=== PATIENT | male | born 1950 | race Caucasian/White ===

== ENCOUNTER 2017-01-04 09:00 | Inpatient (IN) | payer MEDICARE ==
[2017-01-04] MEDS ORDERED: Bumetanide IV* 0.25 MG/ML 4 ML VIAL IV ONE (09:34)
[2017-01-04] MEDS ORDERED: Diltiazem IV* 5 MG/ML 5 ML VIAL (for loading dose/IV Push) (25 MG) IV SLOW PU ONE (09:38)
[2017-01-04] MEDS ORDERED: Diltiazem IV VIAL* 125 MG in D5W 100 ML BAG* 100 ML IV ONE (09:39)
[2017-01-04 09:48] LABS: Hematocrit 43 % (42-52); Hemoglobin 14.2 g/dl (14.0-18.0); Mean Corpuscular HGB Conc 33 g/dl (31-36); Mean Corpuscular Hemoglobin 32 pg (27-31); Mean Corpuscular Volume 95 fL (80-94); Mean Platelet Volume 8 um3 (7.4-10.4); Red Blood Count 4.48 10^6/ul (4.0-5.4); Red Cell Distribution Width 14 % (10.5-15); White Blood Count 9.3 10^3/ul (3.5-10.8)
[2017-01-04] MEDS ORDERED: Diltiazem DRIP* 100 MG/100 ML ADDV.BAG IVPB ONE (10:00)
[2017-01-04 10:05] LABS: Albumin 3.7 g/dL (3.2-5.2); BUN/Creatinine Ratio 19.7 (8-20); C Reactive Protein 2.46 mg/L (< 5.00); Calcium 8.8 mg/dL (8.6-10.3); EGFR African American 154.4 (>60); Globulin 2.6 g/dL (2-4); Potassium 3.7 mmol/L (3.5-5.0); Total Bilirubin 0.7 mg/dL (0.2-1.0); Total Protein 6.3 g/dL (6.4-8.9)
[2017-01-04 10:22] LABS: Urine Bacteria 1+ (Absent); Urine Bilirubin Negative (Negative); Urine Glucose Negative (Negative); Urine Nitrite Negative (Negative)
--- NOTE | 2017-01-04 10:23 | RAD ---
HISTORY: Shortness of breath, cough COMPARISONS: October 24, 2016 VIEWS:1: Single frontal portable view of the chest at 10:05 AM FINDINGS: LINES AND TUBES: None. CARDIOMEDIASTINAL SILHOUETTE: The cardiomediastinal silhouette is normal for portable technique. PLEURA: The costophrenic angles are sharp. No pleural abnormalities are noted. LUNG PARENCHYMA: The lung volumes are low. The lungs are clear accounting for the phase of respiration. ABDOMEN: The upper abdomen is clear. There is no subphrenic gas. BONES AND SOFT TISSUES: No bone or soft tissue abnormalities are noted. IMPRESSION: LOW LUNG VOLUMES. NO ACTIVE CARDIOPULMONARY DISEASE.
[2017-01-04] MEDS ORDERED: Metoprolol Tartrate TAB* 50 mg PO ONE (11:54)
[2017-01-04] MEDS ORDERED: Diltiazem TAB* 30 MG PO SCH (12:00)
[2017-01-04] MEDS ORDERED: Diazepam TAB(*) 5 MG PO ONE (15:35)
[2017-01-04] MEDS ORDERED: diPHENhydraMINE PO* 25 MG PO ONE (15:35)
[2017-01-04] MEDS: Atorvastatin* 20 MG TAB PO SCH (17:09)
[2017-01-04] MEDS: Furosemide IV* 10 MG/ML VIAL (40 MG) IV SCH (17:09)
[2017-01-04] MEDS: Warfarin TAB(*) 5 MG PO SCH (17:09)
[2017-01-04] MEDS: Enoxaparin(*) 150 MG/ML 1 ML SYRINGE SUBCUT SCH (17:09)
--- NOTE | 2017-01-04 17:41 | ED ---
prem Oliver Timothy, scribed for Gianni Vaughn MD on 01/04/17 at 0929 . Shortness of Breath - HPI Summary HPI Summary: Garfield Resendiz is a 66 yo male presenting to [facility] per his pump and blower operator's recommendation accompanied by his . Pt has a Hx of CHF and was scheduled for a nuclear stress test today, but was found to have fluid. Pt's syas this started a few months ago, but has increased n the past 4 days. Pt has a persistent raspy cough with some wheezing. Pt is weak, orthopnic at night, with dyspnea as his chief complaint. He denies any swelling of his testicles or his thighs. His MHx includes CHF, Afib CAD, HTN, and tobacco use. He has been on xarelto and metaprolol, but had facial swelling and xarelto was discontinued. - History of Current Complaint Chief Complaint: EDChestPainROMI Time Seen by Provider: 01/04/17 09:22 Hx Obtained From: Patient Onset/Duration: Gradual Onset, Lasting Weeks, Still Present, Worse Since - 4 days Timing: Constant Current Severity: Moderate Dyspnea At: Rest - Allergy/Home Medications Allergies/Adverse Reactions: Allergies Allergy/AdvReac Type Severity Reaction Status Date / Time No Known Allergies Allergy Verified 09/27/13 09:23 PMH/Surg Hx/FS Hx/Imm Hx Endocrine/Hematology History: Denies: Hx Diabetes Cardiovascular History: Reports: Hx Atrial Fibrillation, Hx Congestive Heart Failure, Hx Hypertension Respiratory History: Denies: Hx Asthma Infectious Disease History: No Infectious Disease History: Denies: Traveled Outside the [place] in Last 30 Days - Family History Known Family History: Positive: Cardiac Disease, Diabetes - Social History Lives: With Family Alcohol Use: Rare Hx Substance Use: No Substance Use Type: Reports: None Hx Tobacco Use: Yes Smoking Status (MU): Former Smoker - quit 3 months ago Review of Systems Constitutional: Negative Eyes: Negative ENT: Negative Cardiovascular: Negative Positive: Shortness Of Breath, Cough - raspy Gastrointestinal: Negative Genitourinary: Negative Musculoskeletal: Negative Skin: Negative Neurological: Negative Psychological: Normal All Other Systems Reviewed And Are Negative: Yes Physical Exam - Summary Physical Exam Summary: The patient is well-nourished in no acute distress and in no acute pain. The skin is warm and dry and skin color reflects adequate perfusion. HEENT: The head is normocephalic and atraumatic. The pupils are equal and reactive. The conjunctivae are clear and without drainage. Nares are patent and without drainage. Mouth reveals moist mucous membranes and the throat is without erythema and exudate. The external ears are intact. The ear canals are patent and without drainage. The tympanic membranes are intact. Neck is supple with full range of motion and non-tender. There are no carotid bruits. There is some neck vein distension. Respiratory: Chest is non-tender. Lungs exhibit rales. Cardiovascular: Heart is tachycardic with regular rhythm. There is no murmur or rub auscultated. Pulses are symmetrical and equal. Abdomen: The abdomen is soft and non-tender. There are normal bowel sounds heard in all four quadrants and there is no organomegaly palpated. There is some swelling of the abdomen. no pitting edema in abd wall. Musculoskeletal: There is no back pain noted. Extremities are non-tender with full range of motion. There is good capillary refill. There is bilateral peripheral edema, no calf tenderness elicited. There is pitting edemea up to his thighs bilaterally. Neurological: Patient is alert and oriented to person, place and time. The patient has symmetrical motor strength in all four extremities. Cranial nerves are grossly intact. Deep tendon reflexes are symmetrical and equal in all four extremities. Psychiatric: The patient has an appropriate affect and does not exhibit any anxiety or depression. Triage Information Reviewed: Yes Vital Signs On Initial Exam: Initial Vitals Temp Pulse Resp BP Pulse Ox 98.2 F 87 20 131/75 98 01/04/17 09:03 01/04/17 09:03 01/04/17 09:03 01/04/17 09:03 01/04/17 09:03 Vital Signs Reviewed: Yes Diagnostics - Vital Signs Vital Signs Temp Pulse Resp BP Pulse Ox 01/04/17 09:07 98.2 F 93 20 131/75 98 01/04/17 09:03 98.2 F 87 20 131/75 98 - Laboratory Lab Results: Lab Results 01/04/17 01/04/17 01/04/17 Range/Units 09:40 09:40 09:40 WBC 9.3 (3.5-10.8) 10^3/ul RBC 4.48 (4.0-5.4) 10^6/ul Hgb 14.2 (14.0-18.0) g/dl Hct 43 (42-52) % MCV 95 H (80-94) fL MCH 32 H (27-31) pg MCHC 33 (31-36) g/dl RDW 14 (10.5-15) % Plt Count 231 (150-450) 10^3/ul MPV 8 (7.4-10.4) um3 Neut % (Auto) 74.4 (38-83) % Lymph % (Auto) 14.5 L (25-47) % Pierce % (Auto) 10.2 H (1-9) % Eos % (Auto) 0.5 (0-6) % Baso % (Auto) 0.4 (0-2) % Absolute Neuts (auto) 6.9 (1.5-7.7) 10^3/ul Absolute Lymphs (auto) 1.3 (1.0-4.8) 10^3/ul Absolute Monos (auto) 0.9 H (0-0.8) 10^3/ul Absolute Eos (auto) 0 (0-0.6) 10^3/ul Absolute Basos (auto) 0 (0-0.2) 10^3/ul Absolute Nucleated RBC 0 10^3/ul Nucleated RBC % 0 Sodium 140 (133-145) mmol/L Potassium 3.7 (3.5-5.0) mmol/L Chloride 106 (101-111) mmol/L Carbon Dioxide 27 (22-32) mmol/L Anion Gap 7 (2-11) mmol/L BUN 13 (6-24) mg/dL Creatinine 0.66 L (0.67-1.17) mg/dL Est GFR ( Amer) 154.4 (>60) Est GFR (Non-Af Amer) 120.0 (>60) BUN/Creatinine Ratio 19.7 (8-20) Glucose 114 H (70-100) mg/dL Lactic Acid 1.5 (0.5-2.0) mmol/L Calcium 8.8 (8.6-10.3) mg/dL Total Bilirubin 0.70 (0.2-1.0) mg/dL AST 9 L (13-39) U/L ALT 12 (7-52) U/L Alkaline Phosphatase 67 (34-104) U/L Troponin I 0.00 (<0.04) ng/mL C-Reactive Protein 2.46 (< 5.00) mg/L B-Natriuretic Peptide ( - 100) pg/mL Total Protein 6.3 L (6.4-8.9) g/dL Albumin 3.7 (3.2-5.2) g/dL Globulin 2.6 (2-4) g/dL Albumin/Globulin Ratio 1.4 (1-3) Urine Color Urine Appearance Urine pH (5-9) Ur Specific Whe[place] (1.010-1.030) Urine Protein (Negative) Urine Ketones (Negative) Urine Blood (Negative) Urine Nitrate (Negative) Urine Bilirubin (Negative) Urine Urobilinogen (Negative) Ur Leukocyte Esterase (Negative) Urine WBC (Auto) (Absent) Urine RBC (Auto) (Absent) Ur Squamous Epith Cells (Absent) Urine Bacteria (Absent) Urine Glucose (Negative) 01/04/17 01/04/17 Range/Units 09:40 09:55 WBC (3.5-10.8) 10^3/ul RBC (4.0-5.4) 10^6/ul Hgb (14.0-18.0) g/dl Hct (42-52) % MCV (80-94) fL MCH (27-31) pg MCHC (31-36) g/dl RDW (10.5-15) % Plt Count (150-450) 10^3/ul MPV (7.4-10.4) um3 Neut % (Auto) (38-83) % Lymph % (Auto) (25-47) % Pierce % (Auto) (1-9) % Eos % (Auto) (0-6) % Baso % (Auto) (0-2) % Absolute Neuts (auto) (1.5-7.7) 10^3/ul Absolute Lymphs (auto) (1.0-4.8) 10^3/ul Absolute Monos (auto) (0-0.8) 10^3/ul Absolute Eos (auto) (0-0.6) 10^3/ul Absolute Basos (auto) (0-0.2) 10^3/ul Absolute Nucleated RBC 10^3/ul Nucleated RBC % Sodium (133-145) mmol/L Potassium (3.5-5.0) mmol/L Chloride (101-111) mmol/L Carbon Dioxide (22-32) mmol/L Anion Gap (2-11) mmol/L BUN (6-24) mg/dL Creatinine (0.67-1.17) mg/dL Est GFR ( Amer) (>60) Est GFR (Non-Af Amer) (>60) BUN/Creatinine Ratio (8-20) Glucose (70-100) mg/dL Lactic Acid (0.5-2.0) mmol/L Calcium (8.6-10.3) mg/dL Total Bilirubin (0.2-1.0) mg/dL AST (13-39) U/L ALT (7-52) U/L Alkaline Phosphatase (34-104) U/L Troponin I (<0.04) ng/mL C-Reactive Protein (< 5.00) mg/L B-Natriuretic Peptide 199 H ( - 100) pg/mL Total Protein (6.4-8.9) g/dL Albumin (3.2-5.2) g/dL Globulin (2-4) g/dL Albumin/Globulin Ratio (1-3) Urine Color Straw Urine Appearance Clear Urine pH 6.0 (5-9) Ur Specific Whe[place] 1.003 L (1.010-1.030) Urine Protein Negative (Negative) Urine Ketones Negative (Negative) Urine Blood Negative (Negative) Urine Nitrate Negative (Negative) Urine Bilirubin Negative (Negative) Urine Urobilinogen Negative (Negative) Ur Leukocyte Esterase Trace H (Negative) Urine WBC (Auto) Trace(0-5/hpf) (Absent) Urine RBC (Auto) Absent (Absent) Ur Squamous Epith Cells Present H (Absent) Urine Bacteria 1+ H (Absent) Urine Glucose Negative (Negative) Result Diagrams: 01/04/17 09:40 01/04/17 09:40 Lab Statement: Any lab studies that have been ordered have been reviewed, and results considered in the medical decision making process. - Radiology CXR Xray Interpretation: No Acute Changes - IMPRESSION: LOW LUNG VOLUMES. NO ACTIVE CARDIOPULMONARY DISEASE. Radiology Interpretation Completed By: ED Physician - Impression by Dr. Vaughn: cardiomegaly, poor inspiratory film, increased vascular congestion., Radiologist - EKG 0911 Cardiac Rate: Tachycardia - 113 BPM EKG Interpretation: Afib and tachycardia @ 113 BPM. Nml axis, no STEMI. Nonspecific ST changes Course/Dx - Course Assessment/Plan: Garfield Resendiz is a 66 yo male presenting to [facility] per his pump and blower operator due to fluid in his chest, with a Hx of CHF. Note that his EF is 30-35%, per pump and blower operator. His EKG suggests Afib, no STEMI (see documentation) . In the ED he received bumex, diltiazem. His CXR suggests low lung volume and no acute cardiopulmonary disease. After clinical examination, review of his imaging studies and review of his lab work as well as discussion with Dr. Lopez, he will be admitted to [facility] with pulmonary edema and Afib with rapid ventricular response. - Diagnoses Differential Diagnosis/HQI/PQRI: Positive: CHF, CO, Other - atrial fibrillation with rvr Provider Diagnoses: Pulmonary edema, Atrial fibrillation with rapid ventricular response - Physician Notifications Discussed Care of Patient With: 1128 - Dr. Lopez (hospitalist) - discussed Pt condition, accepts Pt for admission. - Critical Care Time Critical Care Time: 30-74 min Discharge - Discharge Plan Condition: Stable Disposition: ADMITTED TO [facility] Discharge Disposition Comment: pulmonary edema and Afib with rapid ventricular response The documentation as recorded by the prem bañuelos Timothy accurately reflects the service I personally performed and the decisions made by , Gianni Vaughn MD.
[2017-01-04] MEDS ORDERED: Potassium Chlor TAB* 20 MEQ TAB.ER PO ONE (18:04)
[2017-01-04] MEDS: Metoprolol Tartrate TAB* 50 mg PO SCH (20:04)
[2017-01-04] MEDS: Tamsulosin CAP* 0.4 MG PO SCH (20:05)
--- NOTE | 2017-01-04 20:10 | HP ---
ATTENDING'S ADDENDUM NOW INCLUDED ON THIS REPORT HOSPITAL MEDICINE HISTORY AND PHYSICAL: DATE OF ADMISSION: 01/04/17 PRIMARY CARE PHYSICIAN: Dr. Parikh. ATTENDING PHYSICIAN: Dr. Brandie Lopez* (dictation provided by Bethany Villa NP) CHIEF COMPLAINT: Shortness of breath and bilateral lower extremity swelling. HISTORY OF PRESENT ILLNESS: Mr. Resendiz is a 66-year-old male with a past medical history of hypertension and hyperlipidemia, who presents today to the hospital with concern for bilateral lower extremity swelling and shortness of breath. Mr. Resendiz's who is at the bedside provides much of the history. She states that the patient first began to feel unwell back in May. She describes him being more exhausted than usual, but having no specific symptoms. However, approximately 2 weeks ago, he developed shortness of breath and was noted to have more significant bilateral lower extremity swelling. For this reason, they followed up with Dr. Sandoval from Cardiology, who noted that the patient was in atrial fibrillation; this is a new diagnosis for Mr. Resendiz. The patient was started on metoprolol and Xarelto at that time with plans to follow up for an echocardiogram and stress test. The patient had an echocardiogram last week, which showed an ejection fraction of 30 % with global hypokinesis. Thereafter, the patient developed significant swelling in his face, which was thought to be secondary to an allergic reaction to XARELTO. XARELTO was stopped and the patient was placed on a baby aspirin until he was followed up with Dr. Sandoval. The patient was here today at the hospital to have a stress test when it was noted by staff that he had rales in his lungs and had severe 3+ pitting edema in his legs. Dr. Sandoval saw the patient and advised him to come to the emergency room for close followup and workup. Ms. Resendiz also feels that the patient has gotten worse over the past 24 hours as he is now not able to lie flat at night due to shortness of breath. She also noted that she heard him "gurgling" while he was sleeping last night and then he has had a cough. In the emergency room, Mr. Resendiz had labs, which showed normal creatinine, very mildly elevated BNP to 199. His troponin was 0.00. His urine shows trace leuk esterase with 1+ bacteria, but does show squamous epithelial cells. His heart rate was approximately 115 and he was in atrial fibrillation. He had a chest x-ray that was read as being normal, but to my eye and per emergency room provider, likely shows significant pulmonary edema. The patient was placed on a Cardizem drip with good results. He also was given one time dose of Bumex 2 mg IV with good urine output, thus far the patient states he is breathing more comfortably. PAST MEDICAL HISTORY: 1. Benign prostatic hypertrophy. 2. Hypertension. 3. Hyperlipidemia. 4. Fine tremor. 5. History of ankle surgery on the left with 9 screws placed. 6. Recent diagnosis of atrial fibrillation. 7. Recent diagnosis of systolic congestive heart failure and an EF of 30%. MEDICATIONS: 1. Atorvastatin 20 mg p.o. daily. 2. Furosemide 40 mg p.o. daily. 3. Metoprolol succinate 50 mg p.o. at bedtime. 4. Multivitamin with mineral 1 tab p.o. daily. 5. Rivaroxaban 20 mg p.o. daily. 6. Amlodipine/benazepril 10/20 one cap p.o. daily. 7. Finasteride 5 mg p.o. daily. 8. Omeprazole 20 mg p.o. daily. 9. Tamsulosin 0.4 mg p.o. at bedtime. ALLERGIES: To XARELTO. FAMILY HISTORY: The patient reports his dad at age of 90 with heart trouble. His mom at 56 related to an aneurysm and lung cancer. His grandmother at 56 with "heart issues." SOCIAL HISTORY: The patient is a longtime smoker. He smoked for over 35 years , but quit 3 months ago. No report of alcohol or drug use. He states that his , Bettie, and his daughter, Argelia, would be his healthcare proxy. REVIEW OF SYSTEMS: Constitutional: No fevers, no chills, no unintended weight loss. Cardiac: No chest pain. Positive for lower extremity edema. Respiratory: Positive for cough. No hemoptysis. Positive for shortness of breath now with lying flat. GI: No nausea, vomiting, diarrhea, or abdominal pain. : No gross hematuria or dysuria. Positive for BPH. Neuro: No focal weakness or sensory loss. Eyes: No visual complaints. ENT: No dysphagia. Musculoskeletal: No arthralgias or myalgias, but does have a history of left ankle surgery. Skin: No rashes or lesions. Psych: No depression or anxiety. PHYSICAL EXAMINATION GENERAL: Mr. Resendiz is sitting up on the bed. He is in no acute distress. His is at the bedside. VITAL SIGNS: Temperature 98.2, heart rate 69, respiratory rate 13, O2 saturation 94% on room air, blood pressure 117/65. LUNGS: Have crackles bilaterally in the bases, it is diminished due to body habitus with no accessory muscle use. HEART: S1 and S2 and irregular, but no murmur, rub, or gallop. ABDOMEN: Protuberant, but soft and nontender with bowel sounds positive x4. EXTREMITIES: Positive 3+ pitting edema. NEURO: He is alert, he is oriented x3. He moves all extremities equally. There is no facial asymmetry or focal weakness. Extraocular movements are intact. SKIN: Intact. DIAGNOSTIC STUDIES/LAB DATA: WBC 9.3, hemoglobin 14.2, hematocrit 43, platelet count 231. Sodium 140, potassium 3.7, chloride 106, serum bicarbonate 27, BUN 13, creatinine 0.66, glucose 114. BNP 199. Troponin 0.00. Urine does show trace leuk esterase and 1+ bacteria, but has squamous epithelial cells as well. Chest x-ray shows pulmonary edema. EKG shows AFib with heart rate of 115, but no evidence of ischemia. ASSESSMENT AND PLAN: Mr. Resendiz is 66-year-old male with past medical history of recent diagnosis of atrial fibrillation with systolic congestive heart failure with ongoing problems with lower extremity edema, now with worsening shortness of breath and inability to lie flat and pulmonary edema. Our plans are for observation in the hospital for the followin. Atrial fibrillation: The patient's heart rate is controlled after initiation of Cardizem in the emergency room. I spoke with Dr. Sandoval, who states the patient was recently started on metoprolol and I think it is reasonable to continue with an increased dose of metoprolol, he will have 50 mg now, and then we will start 100 mg metoprolol tartrate b.i.d. and we can adjust that as needed based on clinical course. The patient has been allergic to XARELTO and the family is interested in starting Coumadin. Plan to start Coumadin with the Lovenox bridge for stroke prevention in a patient with persistent atrial fibrillation. 2. Systolic congestive heart failure: This is a new diagnosis for the patient. He did not respond well to 40 mg oral Lasix at home, but has had significant urine output after having Bumex IV in the emergency room. Plan to continue with IV diuresis, but we will switch back to Lasix at 40 mg b.i.d. and we can adjust that based on clinical course and analysis of his labs in the morning. I did speak with Dr. Sandoval. There had been a plan for nuclear medicine stress test outpatient, but Dr. Sandoval is questioning whether or not it would be more beneficial for the patient to go straight on to cardiac catheterization during this hospitalization. Plans are for consultation with Dr. Payton. 3. Benign prostatic hypertrophy: Continue finasteride. 4. Hypertension: Plan to continue metoprolol, but we will hold enalapril, amlodipine, benazepril as we increase metoprolol dose. 5. Hyperlipidemia: Continue atorvastatin. 6. Gastroesophageal reflux disease: Continue omeprazole. 7. DVT prophylaxis: With Lovenox. 8. Code status: Full code. TIME SPENT: Approximately 60 minutes was spent on the admission of this patient , more than half time spent with the patient at the bedside reviewing the events leading up to this hospitalization, performing the physical examination, and reviewing the plan of care. BETHANY VILLA NP DATE OF ADMISSION: 01/04/17 ADDENDUM: Garfield Resendiz is a 66-year-old male with recently diagnosed cardiomyopathy and atrial fibrillation who presented to the hospital complaining of shortness of breath. The patient is going to be admitted to the telemetry monitored floor and Cardiology consult is going to be requested. The patient most likely is in CHF at this point. For further details of the patient's presentation and plan, please see history and physical dictated by Bethany Villa NP, on 01/04/17 with which I agree. BRANDIE LOPEZ MD CC: Dr. Parikh* [id number]/[facility] #: [id number]/CPS #: [id number] EDIN
--- NOTE | 2017-01-04 21:34 | HP ---
HISTORY AND PHYSICAL:* DATE OF ADMISSION: 01/04/17 ADDENDUM: Garfield Resendiz is a 66-year-old male with recently diagnosed cardiomyopathy and atrial fibrillation who presented to the hospital complaining of shortness of breath. The patient is going to be admitted to the telemetry monitored floor and Cardiology consult is going to be requested. The patient most likely is in CHF at this point. For further details of the patient's presentation and plan, please see history and physical dictated by Bethany Villa NP, on 01/04/17 with which I agree. [id number]/[facility] #: [id number] EDIN
--- NOTE | 2017-01-04 22:25 | CONS ---
CARDIOLOGY CONSULTATION: DATE OF CONSULT: 01/04/17 INDICATION FOR CONSULT: Congestive heart failure, shortness of breath, atrial fibrillation. HISTORY OF PRESENT ILLNESS: The patient is a 66-year-old gentleman, who has been experiencing increasing shortness of breath and increase in edema for the past 2 months or so. The patient has a past medical history of hypertension, hyperlipidemia, BPH. He has been noticing increasing shortness of breath. The patient was seen in consultation by Dr. Sandoval. At that time, he was noted to have atrial fibrillation. The recommendations are the patient to undergo cardiac testing including echocardiogram, stress test, and Holter monitor. The patient was in the middle of that workup when he came to the office today for a stress test. At that time, he was experiencing significant shortness of breath and significant edema of his lower extremities. At that time, Dr. Sandoval referred him to the emergency room for evaluation. He was ultimately admitted to the hospital for congestive heart failure and atrial fibrillation. The patient received IV diuretics in the emergency room. When I saw the patient on the floor, approximately 5 hours later, he was much more comfortable. He had significant a decrease in his facial swelling and lower extremity edema. PAST MEDICAL HISTORY: Significant for BPH, bronchitis, hypertension, hyperlipidemia, borderline diabetes, chronic sinus, cough. PAST SURGICAL HISTORY: Left ankle surgery after a fracture in 2010. OUTPATIENT MEDICATIONS: 1. Amlodipine/benazepril 10/20 once a day. 2. Prilosec 20 mg a day. 3. Atorvastatin 20 mg a day. 4. Flomax 0.4 mg a day. 5. Proscar 5 mg a day. 6. Lasix 40 mg a day. 7. Advil 200 as needed. 8. Ventolin inhaler. 9. Prilosec 20 mg a day. 10. At his initial consultation, the patient was started on Xarelto 20 mg a day. ALLERGIES: No known drug allergies. FAMILY HISTORY: His mother of lung cancer. Father had heart disease. SOCIAL HISTORY: He is . 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 He works outside. He has chronic back pain. He does not get any regular exercise. He drinks 2 to 3 cups of coffee a day, 2 to 3 drinks of alcohol per week. He used to be a pack-a-day smoker; he quit 2 years ago. PHYSICAL EXAM: Height is 5 feet 9 inches, weight 288 pounds, temperature 98, heart rate 70, blood pressure 113/77, oxygen saturation 94% on 2 L, respiratory rate is 18. Sclerae anicteric. Oropharynx is pink without erythema. Carotids are 2+ without bruits. JVD is normal. Thyroid is normal. Cardiac Exam: S1, S2, irregular. No murmurs, rubs, or gallops. Lungs: Clear to auscultation bilaterally. There is no dullness to percussion. Abdomen: Obese, soft, nontender, nondistended with normoactive bowel sounds. No obvious ascites. Extremities: Show 1+ edema in the lower extremities. He has 2+ pulses throughout. The patient is awake, alert, and oriented. He moves all 4 extremities equally. LABORATORY DATA: CBC within normal limits. Chemistry is within normal limits. BUN 13, creatinine 0.66. AST and ALT are within normal limits. BNP is minimally elevated at 199. C-reactive protein is normal at 2.4. INR is 1.04. IMPRESSION: This is a 66-year-old gentleman with history of hypertension, hyperlipidemia, who is admitted to the hospital with congestive heart failure. He has been seen in consultation by Dr. Sandoval. The patient did have an echocardiogram in our office on January 01. This demonstrated [id number] concentric left ventricular hypertrophy, moderate to severely reduced left ventricular systolic function, ejection fraction of 30% to 35% with global hypokinesis, trace tricuspid regurgitation, mild pulmonary hypertension, no other significant valvular abnormalities. Again, the patient was scheduled for a stress test in our office today but because of his presentation, he was transported to the emergency room. This is a 66-year-old gentleman with increasing shortness of breath and congestive heart failure. The patient is in atrial fibrillation, is unclear how long he is in atrial fibrillation before his consultation with Dr. Sandoval. The patient was started on Xarelto for his atrial fibrillation; however, this was stopped this weekend because of facial swelling. Because of the patient's congestive heart failure and severe left ventricular dysfunction, it is my recommendation the patient undergo cardiac catheterization. The risks and benefits were described in detail to the patient and his and they are willing to proceed. The patient will continue on his current medication. If his cardiac catheterization shows no significant coronary artery disease, we will proceed with transesophageal echocardiogram and cardioversion to see he is maintaining normal sinus rhythm and improves his left ventricular function. Further recommendations pending the results of his cardiac catheterization in response to medications. CC: Dr. Sandoval, [facility]* [id number]/[facility] #: [id number] EDIN
[2017-01-04] MEDS ORDERED: NS 0.9% 1000 ML* 1,000 ML IV SCH (23:55)
[2017-01-05] MEDS: Enoxaparin(*) 150 MG/ML 1 ML SYRINGE SUBCUT SCH ×2 (05:03→17:52)
[2017-01-05 05:17] LABS: BUN/Creatinine Ratio 17.1 (8-20); EGFR African American 144.2 (>60); EGFR Non-African American 112.1 (>60); Potassium 4.1 mmol/L (3.5-5.0)
[2017-01-05] MEDS ORDERED: diPHENhydraMINE PO* 25 MG PO ONE (07:00)
[2017-01-05] MEDS ORDERED: Diazepam TAB(*) 5 MG PO ONE (07:00)
[2017-01-05] MEDS: Omeprazole CAP* 20 MG PO SCH (07:45)
[2017-01-05] MEDS ORDERED: fentaNYL* 50 MCG/ML 2 ML VIAL (100 MCG VIAL) ONE (08:05)
[2017-01-05] MEDS ORDERED: Heparin 2 UNITS/ML IVPREMIX* 3,000 ML IV ONE (08:06)
[2017-01-05] MEDS ORDERED: Lidocaine 1% INJ* 10 MG/ML 30 ML SDV ONE (08:06)
[2017-01-05] MEDS ORDERED: Midazolam* 1 MG/ML 5 ML VIAL (5 MG) ONE (08:06)
[2017-01-05] MEDS ORDERED: Iohexol 350 (CONTRAST) 200 ML MDV IV ONE (08:06)
[2017-01-05] MEDS: Furosemide IV* 10 MG/ML VIAL (40 MG) IV SCH ×2 (10:38→17:52)
[2017-01-05] MEDS: Metoprolol Tartrate TAB* 50 mg PO SCH ×2 (10:39→21:05)
[2017-01-05] MEDS: Finasteride TAB* 5 MG PO SCH (10:39)
--- NOTE | 2017-01-05 16:38 | PN ---
Subjective Date of Service: 01/05/17 Interval History: Patient seen and examined at bedside. Denies fever, chills, shortness of breath , chest discomfort, N/V/D. Pt states that he has been up and ambulating without difficulty since his cardiac cath. He is able to lay flat in bed this afternoon. Tele: Afib with few PVCs, rate 70-90's. Family History: Unchanged from Admission Social History: Unchanged from Admission Past Medical History: Unchanged from Admission Objective Active Medications: Atorvastatin Calcium (Lipitor*) 20 mg PO 1700 [facility] Enoxaparin Sodium (Lovenox(*)) 130 mg SUBCUT Q12H [facility] Finasteride (Proscar Tab*) 5 mg PO DAILY [facility] Furosemide (Lasix Iv*) 40 mg IV 0800,1700 [facility] Metoprolol Tartrate (Lopressor Tab*) 100 mg PO BID [facility] Omeprazole (Prilosec Cap*) 20 mg PO 0730 [facility] Pharmacy Profile Note (Coumadin Daily Reminder*) 0 note FOLLOW UP 1700 [facility] Pharmacy Profile Note (Coumadin Per Pharmacy*) 1 note FOLLOW UP .PER PHARMACY PROTOC [facility] Reason: Protocol Tamsulosin HCl (Flomax Cap*) 0.4 mg PO BEDTIME [facility] Warfarin Sodium (Coumadin Tab(*)) 5 mg PO DAILY@1700 [facility] Stop: 01/05/17 23:00 Vital Signs 01/04/17 01/05/17 01/05/17 19:23 00:29 04:05 Temperature 98.4 F 99.5 F 98.9 F Pulse Rate 86 84 87 Respiratory 16 18 16 Rate Blood Pressure 120/78 122/79 106/49 (mmHg) O2 Sat by Pulse 94 91 92 Oximetry 01/05/17 01/05/17 01/05/17 07:42 07:45 09:37 Temperature 97.8 F Pulse Rate 78 Respiratory 16 20 Rate Blood Pressure 134/71 124/68 (mmHg) O2 Sat by Pulse 92 Oximetry 01/05/17 01/05/17 01/05/17 09:45 10:00 10:15 Temperature Pulse Rate 83 86 Respiratory 16 18 20 Rate Blood Pressure 118/71 121/67 123/57 (mmHg) O2 Sat by Pulse 90 94 Oximetry 01/05/17 01/05/17 01/05/17 10:30 11:00 11:26 Temperature 97.6 F Pulse Rate 86 93 Respiratory 18 17 18 Rate Blood Pressure 107/74 130/64 (mmHg) O2 Sat by Pulse 93 92 Oximetry 01/05/17 01/05/17 01/05/17 12:00 13:00 16:03 Temperature 98.1 F Pulse Rate 76 82 72 Respiratory 17 19 22 Rate Blood Pressure 115/72 120/81 120/77 (mmHg) O2 Sat by Pulse 90 89 91 Oximetry Oxygen Devices in Use Now: None Appearance: NAD, laying in bed Eyes: No Scleral Icterus Respiratory: Symmetrical Chest Expansion and Respiratory Effort, Clear to Auscultation - , few crackles in bilateral bases Cardiovascular: - - Heart rate irregular Abdominal: NL Sounds; No Tenderness; No Distention Extremities: - - 2+ bilateral LE edema Neurological: Alert and Oriented x 3, NL Muscle Strength and Tone Lines/Tubes/Other Access: Clean, Dry and Intact Peripheral IV - site benign Nutrition: Taking PO's Result Diagrams: 01/04/17 09:40 01/05/17 04:38 Additional Lab and Data: Assess/Plan/Problems-Billing Assessment: Mr. Resendiz is a 66 yo male with PMH significant for recent diagnosis of atrial fibrillation with systolic CHF who presented to the emergency room with worsening shortness of breath and inability to lie flat and pulmonary edema. - Patient Problems (1) Afib Code(s): I48.91 - UNSPECIFIED ATRIAL FIBRILLATION SNOMED Code(s): 11619177 Comment: - Rate controlled - Continue Metoprolol and Lovenox bridge to Warfarin - Plan for cardioversion in the morning (2) CHF (congestive heart failure) Code(s): I50.9 - HEART FAILURE, UNSPECIFIED SNOMED Code(s): 08442767 Comment: - Systolic - S/P cardiac cath - non-ischemic cardiomyopathy, EF 30% - Will continue IV lasix today and switch to PO tomorrow (3) BPH (benign prostatic hyperplasia) Code(s): N40.0 - BENIGN PROSTATIC HYPERPLASIA WITHOUT LOWER URINRY TRACT SYMP SNOMED Code(s): 333021889 Comment: - Continue finasteride and flomax (4) HTN (hypertension) Code(s): I10 - ESSENTIAL (PRIMARY) HYPERTENSION SNOMED Code(s): 04102258 Comment: - Normortensive - Continue metoprolol - Continue to hold enalapril, amlodipine and benazepril for now (5) HLD (hyperlipidemia) Code(s): E78.5 - HYPERLIPIDEMIA, UNSPECIFIED SNOMED Code(s): 16598138 Comment: - Continue atorvastatin (6) GERD (gastroesophageal reflux disease) Code(s): K21.9 - GASTRO-ESOPHAGEAL REFLUX DISEASE WITHOUT ESOPHAGITIS SNOMED Code(s): 141853544 Comment: - Continue omeprazole (7) DVT prophylaxis Code(s): XMZ0325 - SNOMED Code(s): 345904567 Comment: - Lovenox bridge to Warfarin (8) Full code status Code(s): Z78.9 - OTHER SPECIFIED HEALTH STATUS SNOMED Code(s): 395333729 Status and Disposition: OBV to Inpatient. Plan for cardioversion in the morning.
[2017-01-05] MEDS: Atorvastatin* 20 MG TAB PO SCH (17:52)
[2017-01-05] MEDS: Warfarin TAB(*) 5 MG PO SCH (17:52)
[2017-01-05] MEDS: Tamsulosin CAP* 0.4 MG PO SCH (21:04)
--- NOTE | 2017-01-06 02:05 | CATH ---
CARDIAC CATHETERIZATION: DATE OF PROCEDURE: 01/05/17 INDICATION FOR PROCEDURE: Congestive heart failure, atrial fibrillation. PROCEDURE: Cardiac catheterization including left heart catheterization, left ventriculogram, coronary angiography. HISTORY: The patient is a 66-year-old gentleman who was seen in consultation by Dr. Sandoval 3 weeks ago for increased shortness of breath. At that time he was found to be in atrial fibrillation. The patient had an echocardiogram done as an outpatient, which showed an ejection fraction of 35% with no significant valvular disease. The patient was admitted to the hospital because of worsening shortness of breath and congestive heart failure. The patient remained in atrial fibrillation. Cardiac catheterization was recommended to rule out coronary artery disease as a cause for his congestive heart failure and LV dysfunction. PROCEDURE IN DETAIL: The patient was brought to the cardiac catheterization in a fasting state. Informed consent had been obtained prior to the procedure. All labs were reviewed. The patient was placed supine on the catheterization table. Both femoral areas were cleaned and draped in the usual fashion. 1% lidocaine was used for local anesthesia. The right femoral artery was entered by a modified Seldinger technique, and a 6-Vincentian sheath introducer was placed. The patient underwent left ventriculogram, coronary angiography using a 6- Vincentian pigtail catheter, 6-Vincentian JL4 catheter, a 6-Vincentian JR4 catheter. At the end of the procedure, an angiogram of the femoral artery demonstrated normal position and a Mynx closure device was deployed. The patient tolerated the procedure well with no complications. A total of 2.4 minutes of fluoro time was used. A total of 90 cc of Omnipaque dye was used. FINDINGS: HEMODYNAMICS: Central aortic blood pressure 130/93 with a mean of 110, left ventricular pressure 130/19 with an end diastolic pressure of 21. LEFT VENTRICULOGRAM: Left ventricle was overall dilated. Overall systolic function of the left ventricle was moderately reduced. Estimated ejection fraction 30% to 35%. There was global hypokinesis. There was 1+ mitral regurgitation. Aortic valve and ascending aorta appeared normal. CORONARY ARTERIES: Left main artery: The left main was normal in size. It bifurcated into the LAD and circumflex artery. There was no evidence of stenosis. Left anterior descending artery: LAD was normal in size. It gave off 3 diagonal vessels. There was no evidence of stenosis. Left circumflex artery: The circumflex artery was normal in size. It gave off one obtuse marginal branch. There was no evidence of stenosis. Right coronary artery: The RCA was a large dominant vessel. It gave off the PDA. There was no evidence of stenosis. IMPRESSION: 1. Moderate LV dysfunction with global hypokinesis, ejection fraction of 35%. 2. Normal coronary arteries. 3. Mynx closure device to the right femoral artery. RECOMMENDATIONS: The patient will continue on maximum medical therapy and treatment of his atrial fibrillation. CC: Bacilio Sandoval MD; Dr. Praikh* [id number]/[facility] #: [id number] [facility]
[2017-01-06] MEDS: Enoxaparin(*) 150 MG/ML 1 ML SYRINGE SUBCUT SCH ×2 (05:25→17:23)
[2017-01-06 05:39] LABS: Hematocrit 41 % (42-52); Hemoglobin 13.7 g/dl (14.0-18.0); Mean Corpuscular HGB Conc 34 g/dl (31-36); Mean Corpuscular Hemoglobin 32 pg (27-31); Mean Corpuscular Volume 94 fL (80-94); Mean Platelet Volume 8 um3 (7.4-10.4); Red Blood Count 4.36 10^6/ul (4.0-5.4); Red Cell Distribution Width 14 % (10.5-15)
[2017-01-06 05:54] LABS: Calcium 8.9 mg/dL (8.6-10.3); EGFR African American 169.1 (>60); EGFR Non-African American 131.5 (>60); Potassium 3.8 mmol/L (3.5-5.0)
[2017-01-06] MEDS: Omeprazole CAP* 20 MG PO SCH (07:55)
[2017-01-06] MEDS ORDERED: Midazolam* 1 MG/ML 5 ML VIAL (5 MG) ONE (11:26)
[2017-01-06] MEDS ORDERED: Flumazenil* 0.1 MG/ML 5 ML MDV ONE (11:27)
[2017-01-06] MEDS ORDERED: Naloxone* 0.4 MG/ML 1 ML VIAL ONE (11:27)
[2017-01-06] MEDS ORDERED: fentaNYL* 50 MCG/ML 2 ML VIAL (100 MCG VIAL) ONE (11:27)
[2017-01-06] MEDS ORDERED: Lidocaine 2% VISCOUS* 15 ML UDC ONE ×2 (12:04→12:21)
[2017-01-06] MEDS ORDERED: Amiodarone TAB* 400 MG PO ONE (13:49)
--- NOTE | 2017-01-06 13:58 | PN ---
Subjective Date of Service: 01/06/17 - CC: SOB Interval History: Pt's breathing is better with 12 lb fluid loss with diuretics, and less anxious knowing coronary artieries are normal. Medications Active Medications: Amiodarone HCl (Cordarone Tab*) 200 mg PO BID [facility] Atorvastatin Calcium (Lipitor*) 20 mg PO 1700 [facility] Last Admin: 01/05/17 17:52 Dose: 20 mg Enoxaparin Sodium (Lovenox(*)) 130 mg SUBCUT Q12H [facility] Last Admin: 01/06/17 05:25 Dose: 130 mg Finasteride (Proscar Tab*) 5 mg PO DAILY [facility] Last Admin: 01/05/17 10:39 Dose: 5 mg Furosemide (Lasix Tab*) 40 mg PO DAILY [facility] Metoprolol Tartrate (Lopressor Tab*) 50 mg PO BID [facility] Omeprazole (Prilosec Cap*) 20 mg PO 0730 [facility] Last Admin: 01/06/17 07:55 Dose: 20 mg Pharmacy Profile Note (Coumadin Daily Reminder*) 0 note FOLLOW UP 1700 [facility] Last Admin: 01/05/17 17:53 Dose: 1 note Pharmacy Profile Note (Coumadin Per Pharmacy*) 1 note FOLLOW UP .PER PHARMACY PROTOC [facility] PRN Reason: Protocol Tamsulosin HCl (Flomax Cap*) 0.4 mg PO BEDTIME [facility] Last Admin: 01/05/17 21:04 Dose: 0.4 mg Warfarin Sodium (Coumadin Tab(*)) 5 mg PO 1700 [facility] Stop: 01/06/17 17:01 Objective Vital Signs: Temp Pulse Resp BP Pulse Ox 97.8 F 84 15 128/84 96 01/06/17 07:45 01/06/17 12:11 01/06/17 12:11 01/06/17 12:11 01/06/17 12:11 Oxygen Devices in Use Now: Nasal Cannula Appearance: Morbid obese, tachypnic, appears chronically ill. Eyes: No Scleral Icterus, PERRLA Ears/Nose/Mouth/Throat: Clear Oropharnyx, Mucous Membranes Moist Neck: - - thick, obese, no thryromegally. Respiratory: Symmetrical Chest Expansion and Respiratory Effort - heavy rhonci, rales in the bases Cardiovascular: NL Sounds; No Murmurs; No JVD - irregular, tachycardic Abdominal: No Hepatosplenomegaly - obese Extremities: No Clubbing, Cyanosis - mild edema Neurological: Alert and Oriented x 3 Lines/Tubes/Other Access: Clean, Dry and Intact Peripheral IV Laboratory Results: 01/06/17 05:26 01/06/17 05:25 INR (Anticoag Therapy) 1.04 (0.89-1.11) 01/06/17 05:26 Total Bilirubin 0.70 mg/dL (0.2-1.0) 01/04/17 09:40 AST 9 U/L (13-39) L 01/04/17 09:40 ALT 12 U/L (7-52) 01/04/17 09:40 Alkaline Phosphatase 67 U/L (34-104) 01/04/17 09:40 B-Natriuretic Peptide 199 pg/mL (-100) H 01/04/17 09:40 Total Protein 6.3 g/dL (6.4-8.9) L 01/04/17 09:40 Albumin 3.7 g/dL (3.2-5.2) 01/04/17 09:40 Globulin 2.6 g/dL (2-4) 01/04/17 09:40 Albumin/Globulin Ratio 1.4 (1-3) 01/04/17 09:40 Abnormal Lab Results 01/06/17 01/06/17 01/06/17 05:25 05:26 05:26 WBC 8.0 RBC 4.36 Hgb 13.7 L Hct 41 L MCV 94 MCH 32 H MCHC 34 RDW 14 Plt Count 216 MPV 8 Neut % (Auto) 63.8 Lymph % (Auto) 22.6 L Villalba % (Auto) 12.3 H Eos % (Auto) 0.9 Baso % (Auto) 0.4 Absolute Neuts (auto) 5.1 Absolute Lymphs (auto) 1.8 Absolute Monos (auto) 1.0 H Absolute Eos (auto) 0.1 Absolute Basos (auto) 0 Absolute Nucleated RBC 0 Nucleated RBC % 0.1 INR (Anticoag Therapy) 1.04 Sodium 139 Potassium 3.8 Chloride 105 Carbon Dioxide 28 Anion Gap 6 BUN 14 Creatinine 0.61 L Est GFR ( Amer) 169.1 Est GFR (Non-Af Amer) 131.5 BUN/Creatinine Ratio 23.0 H Glucose 104 H Calcium 8.9 Diagnostic Imaging: DEMI: moderate + MR, mild to mod TR, moderate drop in EF, no clot in the appendage Assessment/Plan 66 yo former smoker with afib uncertain duration, non ischemic CM. Underwent DEMI guided CV, is now in NSR alternating with junctional rhythm. AFIB: I started amiodarone, discussed risks, benefits w ith . Plan this for a few weeks to months, short term. I decreased metoprolol to prevent bradycardia iwth amiodarone. CM: Continue metorpolol, but consider coreg in future. Continue benzopril I would stop amlodipine, leads to edema and won't help with CM. I am starting aldactone with his lasix. Re evaluate his EF a few weeks post cardioversion. Evaluate for MARIA GUADALUPE as outpatient. Will need low salt diet as out patient, daily wieghts.
[2017-01-06] MEDS: Metoprolol Tartrate TAB* 50 mg PO SCH (14:26)
--- NOTE | 2017-01-06 14:39 | TEE ---
Patient: LUZ MARIA STEARNS [facility] Rec#: [id number] : 1950 Date: 01/06/2017 Age: 66y Height: 175.3 cm / 69.0 in Weight: 124.7 kg / 274.8 lbs Sex: M BSA: 2.37 Room#: [facility] Admit Date#: 01/04/2017 Type: Inpatient Referring: Britt Garcia MD Performing: Britt Garcia MD Reading: Britt Garcia MD Health And Safety Coordinator: Rachna Harkins Health And Safety Coordinator: Deepa Duran RDCS,RDMS Nurse: Blanche Meadows RN CC: Brandie Lopez MD Transesophageal Echocardiogram Indication: A-fib BP: 133/88 HR: 112 Rhythm: A-Fib Indications Atrial Fibrillation Findings History: HTN, HLD, CHF 35% 01/04/17, bilateral LE edema. Left Ventricle: The left ventricular chamber size is normal. There is diffuse global hypokinesis of the left ventricle. There is moderate to severely decreased left ventricular systolic function. The estimated ejection fraction is 30-35%. The assessment of diastolic function is non-diagnostic. Left Atrium: The left atrium is moderately dilated. No thrombus is visualized within the left atrium. There is no thrombus visualized in the left atrial appendage. Right Ventricle: The right ventricular cavity size is normal. The right ventricular global systolic function is moderately reduced. Right Atrium: The right atrium is moderately dilated. A prominent eustachian valve is noted in the right atrium. Interatrial septum appears intact without evidence of shunting. The bubble study is negative. A patent foramen ovale is not demonstrated with color Doppler and agitated contrast. Aortic Valve: The aortic valve is trileaflet. There is a trace of aortic regurgitation. There is no evidence of aortic stenosis. Mitral Valve: The mitral valve leaflets appear normal. The mitral valve leaflets are mildly thickened. There is moderate mitral regurgitation. posterior wall jet. There is no evidence of mitral stenosis. Tricuspid Valve: The tricuspid valve leaflets are normal. There is mild to moderate tricuspid regurgitation. Pulmonic Valve: The pulmonic valve appears normal. There is a trace pulmonic regurgitation. Pericardium: There is no significant pericardial effusion. Aorta: There is no dilatation of the ascending aorta. There is no dilation of the aortic root. There is plaque visualized in the descending aorta.There is mild atherosclerotic plaque in the visualized segements of the aorta. Pulmonary Artery: The main pulmonary artery appears normal. Venous: The bicaval view was obtained and appears normal. The pulmonary veins appear normal in size. 4 of 4 visualized. DEMI Procedures: All standard views were attempted within the limitations of patient tolerance and safety. History and physical as well as labs were reviewed. The patient was in a fasting state. Risks and benefits of the procedure, including alternatives, were discussed and written informed consent was obtained. The patient and/or their health care farm loan representative expressed understanding of the procedure, risks and benefits. Baseline and continuous monitoring of blood pressure, heart rate, pulse oximetry and heart rhythm was performed throughout the procedure. The appropriate time-out procedure was performed as per [facility] protocol. The patient was placed in the left lateral decubitus position. The patient was placed in the supine position. The patient's posterior pharynx was anesthetized with 20ml of 2% viscous lidocaine.Two doses were given, totaling 40 mL of 2% viscous lidocaine. The patient received IV Midazolam with a total dose of 9 mg. The patient received IV Fentanyl with a total dose of 50 mcg. An oral bite block was inserted for protection of oral dentition. The multiplane transesophageal echocardiogram probe was inserted through the posterior oropharynx and advanced into the esophagus without difficulty. Multiple 2D images were obtained of the heart and its related structures. Color flow Doppler was used for evaluation. Spectral Doppler was also used. The atrial septum was interrogated with color flow Doppler. At the conclusion of the procedure the probe was removed with continuous suction without complications. The patient tolerated the procedure with no apparent complications. Contrast: Normal saline was used as contrast for the bubble study. Intravenous contrast was used to help determine presence of intracardiac shunting. Bubble study on image 39. Conclusions There is moderate to severely decreased left ventricular systolic function. The estimated ejection fraction is 30-35%. The right ventricular global systolic function is moderately reduced. There is no thrombus visualized in the left atrial appendage. Interatrial septum appears intact without evidence of shunting. The aortic valve is trileaflet with normal function. There is moderate mitral regurgitation, posterior wall jet. There is mild to moderate tricuspid regurgitation. Compared with transthoracic echo of 01/01/17, LVEF is stable, mitral insufficiency has increased from mild, right ventricular hypokinesis newly appreciated. Measurements Name Value Normal Range RAd ISD 4CH 5 cm (3.4 - 4.9) RA (A4C)W 6.1 cm (2.9 - 4.6) Aortic Annulus 2.5 cm (1.4 - 2.6) Ao root diameter (2D) 3.3 cm (2.1 - 3.5) Ascending Ao 3.2 cm (2.1 - 3.4) LAd ISD 4CH 5.3 cm (2.9 - 5.3) LA ISD 4CH W 5.5 cm (2.5 - 4.5) Name Value Normal Range MV E-wave Vmax 0.87 m/sec - MV deceleration time 155.4 msec -
--- NOTE | 2017-01-06 15:28 | CARD ---
CC: Dr. Larry Payton; Dr. Bacilio Sandoval; Dr. Haleigh Parikh ELECTRICAL CARDIOVERSION: DATE OF THE CARDIOVERSION: 01/06/17 PROCEDURE: Electrical cardioversion. INDICATION: Atrial fibrillation of uncertain duration. He had a transesophageal echocardiogram benja or to cardioversion. The patient had received throughout both procedures a total of 7 mg of Versed and 50 mcg of fentanyl for sedation. A time- out procedure had been called prior to the transesopha geal echocardiogram and the indications, risks, and benefits of both procedures were discussed with the patient and his . No evidence of thrombus was seen in the left atrial appendage. The patie nt was on Lovenox and the decision was made to proceed with electrical cardioversion. AP patches we re applied to the chest wall and 150 joules was delivered synchronously across the chest wall, but w as unsuccessful at cardioversion. Following this, 200 joules was delivered across the chest wall synchronously using AP patches, and i nitially, he did not cardiovert. About after a few weeks, he did cardiovert alternating sinus rhyth m with a high junctional rhythm alternating with a low junctional rhythm. A 12-lead ECG is pending. SUMMARY: Successful cardioversion from AFib with a rapid ventricular rate to sinus rhythm alternati ng with junctional rhythm. The patient was hemodynamically stable throughout the procedure and is s table during recovery. I think Mr. Resendiz is going to need an antiarrhythmic to maintain sinus rhythm and sleep apne a is likely contributing. See inpatient progress notes. [id number]/[facility] #: [id number]
[2017-01-06] MEDS ORDERED: Warfarin TAB(*) 5 MG PO ONE (17:00)
[2017-01-06] MEDS: Furosemide TAB* 40 MG PO SCH (17:17)
[2017-01-06] MEDS: Spironolactone TAB* 25 MG PO SCH (17:23)
[2017-01-06] MEDS: Atorvastatin* 20 MG TAB PO SCH (17:23)
[2017-01-06] MEDS: Finasteride TAB* 5 MG PO SCH (17:23)
--- NOTE | 2017-01-06 18:17 | PN ---
Subjective Date of Service: 01/06/17 Interval History: Patient seen and examined at bedside. Pt states that he is feeling well after his cardioversion earlier today. Jabari fever, chills, shortness of breath, chest discomfort, palpitations, N/V/D. Pt states that his lower extremity edema is improving. Tele: Sinus rhythm, rate 80's post cardioversion. Pt has been having multiple PVCs post cardioversion. Was in afib, rate 80's prior. Family History: Unchanged from Admission Social History: Unchanged from Admission Past Medical History: Unchanged from Admission Objective Active Medications: Amiodarone HCl (Cordarone Tab*) 200 mg PO BID [facility] Atorvastatin Calcium (Lipitor*) 20 mg PO 1700 [facility] Enoxaparin Sodium (Lovenox(*)) 130 mg SUBCUT Q12H [facility] Finasteride (Proscar Tab*) 5 mg PO DAILY [facility] Furosemide (Lasix Tab*) 40 mg PO DAILY [facility] Metoprolol Tartrate (Lopressor Tab*) 50 mg PO BID [facility] Omeprazole (Prilosec Cap*) 20 mg PO 0730 [facility] Pharmacy Profile Note (Coumadin Daily Reminder*) 0 note FOLLOW UP 1700 [facility] Pharmacy Profile Note (Coumadin Per Pharmacy*) 1 note FOLLOW UP .PER PHARMACY PROTOC [facility] Reason: Protocol Spironolactone (Aldactone Tab*) 25 mg PO DAILY [facility] Tamsulosin HCl (Flomax Cap*) 0.4 mg PO BEDTIME [facility] Vital Signs 01/05/17 01/05/17 01/05/17 19:36 20:00 21:04 Temperature 98.3 F Pulse Rate 85 91 Respiratory 24 18 Rate Blood Pressure 95/57 119/72 (mmHg) O2 Sat by Pulse 92 Oximetry 01/05/17 01/06/17 01/06/17 23:55 03:33 07:45 Temperature 97.9 F 98.1 F 97.8 F Pulse Rate 94 92 59 Respiratory 16 20 16 Rate Blood Pressure 117/74 130/73 132/69 (mmHg) O2 Sat by Pulse 94 90 94 Oximetry 01/06/17 01/06/17 01/06/17 08:00 12:08 12:11 Temperature Pulse Rate 93 84 Respiratory 16 21 15 Rate Blood Pressure 128/84 (mmHg) O2 Sat by Pulse 96 96 Oximetry 01/06/17 01/06/17 01/06/17 12:35 12:40 12:45 Temperature Pulse Rate 77 93 89 Respiratory 16 18 19 Rate Blood Pressure 132/77 128/76 134/73 (mmHg) O2 Sat by Pulse 96 98 97 Oximetry 01/06/17 01/06/17 01/06/17 12:50 12:55 13:00 Temperature Pulse Rate 87 75 88 Respiratory 18 19 19 Rate Blood Pressure 133/79 132/80 124/71 (mmHg) O2 Sat by Pulse 96 98 97 Oximetry 01/06/17 01/06/17 01/06/17 13:05 13:08 13:09 Temperature Pulse Rate 98 140 82 Respiratory 16 20 24 Rate Blood Pressure 126/81 131/91 127/80 (mmHg) O2 Sat by Pulse 97 99 97 Oximetry 01/06/17 01/06/17 01/06/17 13:12 13:15 13:18 Temperature Pulse Rate 92 98 89 Respiratory 20 20 20 Rate Blood Pressure 126/89 119/78 130/73 (mmHg) O2 Sat by Pulse 94 94 93 Oximetry 01/06/17 01/06/17 01/06/17 13:21 13:24 13:27 Temperature Pulse Rate 92 165 107 Respiratory 20 19 21 Rate Blood Pressure 132/94 148/114 125/72 (mmHg) O2 Sat by Pulse 94 93 94 Oximetry 01/06/17 01/06/17 01/06/17 13:30 13:33 13:36 Temperature Pulse Rate 89 61 61 Respiratory 23 23 21 Rate Blood Pressure 117/82 131/64 122/70 (mmHg) O2 Sat by Pulse 89 88 92 Oximetry 01/06/17 01/06/17 01/06/17 13:39 13:42 13:45 Temperature Pulse Rate 65 75 61 Respiratory 19 21 19 Rate Blood Pressure 123/98 116/67 112/53 (mmHg) O2 Sat by Pulse 94 96 92 Oximetry 01/06/17 01/06/17 01/06/17 13:50 13:55 14:00 Temperature Pulse Rate 61 62 Respiratory 20 19 19 Rate Blood Pressure 120/75 116/62 110/62 (mmHg) O2 Sat by Pulse 93 91 Oximetry 01/06/17 01/06/17 01/06/17 14:05 14:21 15:37 Temperature 98.1 F 97.7 F Pulse Rate 59 60 63 Respiratory 17 20 20 Rate Blood Pressure 120/65 111/64 131/70 (mmHg) O2 Sat by Pulse 93 92 92 Oximetry Oxygen Devices in Use Now: None Appearance: NAD, sitting up on the side of the bed Eyes: No Scleral Icterus, PERRLA Ears/Nose/Mouth/Throat: Mucous Membranes Moist Respiratory: Symmetrical Chest Expansion and Respiratory Effort, Clear to Auscultation Cardiovascular: NL Sounds; No Murmurs; No JVD, RRR Abdominal: NL Sounds; No Tenderness; No Distention Extremities: - - 1+ bilateral edema Skin: No Rash or Ulcers Neurological: Alert and Oriented x 3, NL Muscle Strength and Tone Lines/Tubes/Other Access: Clean, Dry and Intact Peripheral IV - site benign Nutrition: Taking PO's Result Diagrams: 01/06/17 05:26 01/06/17 05:25 Additional Lab and Data: Assess/Plan/Problems-Billing Assessment: Mr. Resendiz is a 66 yo male with PMH significant for recent diagnosis of atrial fibrillation with systolic CHF who presented to the emergency room with worsening shortness of breath and inability to lie flat and pulmonary edema. - Patient Problems (1) Afib Code(s): I48.91 - UNSPECIFIED ATRIAL FIBRILLATION SNOMED Code(s): 30879305 Comment: - Rate controlled, now in sinus rhythm after cardioversion - Continue Metoprolol and Lovenox bridge to Warfarin - Started on Amiodarone (2) CHF (congestive heart failure) Code(s): I50.9 - HEART FAILURE, UNSPECIFIED SNOMED Code(s): 53109465 Comment: - Systolic - S/P cardiac cath - non-ischemic cardiomyopathy, EF 30% - Continue Lasix, added spironolactone (3) BPH (benign prostatic hyperplasia) Code(s): N40.0 - BENIGN PROSTATIC HYPERPLASIA WITHOUT LOWER URINRY TRACT SYMP SNOMED Code(s): 680290897 Comment: - Continue finasteride and flomax (4) HTN (hypertension) Code(s): I10 - ESSENTIAL (PRIMARY) HYPERTENSION SNOMED Code(s): 45330404 Comment: - Normortensive - Continue metoprolol - Resume benazepril - Discontinue amlodipine (5) HLD (hyperlipidemia) Code(s): E78.5 - HYPERLIPIDEMIA, UNSPECIFIED SNOMED Code(s): 90567568 Comment: - Continue atorvastatin (6) GERD (gastroesophageal reflux disease) Code(s): K21.9 - GASTRO-ESOPHAGEAL REFLUX DISEASE WITHOUT ESOPHAGITIS SNOMED Code(s): 409404913 Comment: - Continue omeprazole (7) DVT prophylaxis Code(s): CPY7944 - SNOMED Code(s): 373907250 Comment: - Lovenox bridge to Warfarin (8) Full code status Code(s): Z78.9 - OTHER SPECIFIED HEALTH STATUS SNOMED Code(s): 652224065 Status and Disposition: Inpatient. Discharge to home when medically stable, possibly in the morning.
[2017-01-06] MEDS: Tamsulosin CAP* 0.4 MG PO SCH (20:52)
[2017-01-07] MEDS: Enoxaparin(*) 150 MG/ML 1 ML SYRINGE SUBCUT SCH ×2 (06:24→17:51)
[2017-01-07] MEDS: Omeprazole CAP* 20 MG PO SCH (07:35)
[2017-01-07] MEDS: Spironolactone TAB* 25 MG PO SCH (08:12)
[2017-01-07] MEDS: Amiodarone TAB* 200 MG PO SCH ×2 (08:13→20:08)
[2017-01-07] MEDS: Finasteride TAB* 5 MG PO SCH (08:13)
[2017-01-07] MEDS: Furosemide TAB* 40 MG PO SCH (08:14)
[2017-01-07] MEDS: Lisinopril TAB* 10 MG PO SCH (08:14)
[2017-01-07] MEDS: Metoprolol Succinate XL TAB* 50 MG PO SCH (08:21)
--- NOTE | 2017-01-07 08:43 | PN ---
Subjective Date of Service: 01/07/17 Interval History: breathing continues to improve continues with significant diuresis No lightheadedness or palpitations ekg this AM alternated between a stable escape from the LPF at 60 bpm and NSR, still with intermittent short tachyarrhythmias on monitor. Medications Active Medications: Amiodarone HCl (Cordarone Tab*) 200 mg PO BID [facility] Last Admin: 01/07/17 08:13 Dose: 200 mg Atorvastatin Calcium (Lipitor*) 20 mg PO 1700 [facility] Last Admin: 01/06/17 17:23 Dose: 20 mg Enoxaparin Sodium (Lovenox(*)) 130 mg SUBCUT Q12H [facility] Last Admin: 01/07/17 06:24 Dose: 130 mg Finasteride (Proscar Tab*) 5 mg PO DAILY [facility] Last Admin: 01/07/17 08:13 Dose: 5 mg Furosemide (Lasix Tab*) 40 mg PO DAILY [facility] Last Admin: 01/07/17 08:14 Dose: 40 mg Lisinopril (Prinivil Tab*) 20 mg PO DAILY [facility] Last Admin: 01/07/17 08:14 Dose: 20 mg Metoprolol Succinate (Toprol Xl Tab*) 50 mg PO DAILY [facility] Last Admin: 01/07/17 08:21 Dose: Not Given Omeprazole (Prilosec Cap*) 20 mg PO 0730 [facility] Last Admin: 01/07/17 07:35 Dose: 20 mg Pharmacy Profile Note (Coumadin Daily Reminder*) 0 note FOLLOW UP 1700 [facility] Last Admin: 01/06/17 17:24 Dose: 1 note Pharmacy Profile Note (Coumadin Per Pharmacy*) 1 note FOLLOW UP .PER PHARMACY PROTOC [facility] PRN Reason: Protocol Spironolactone (Aldactone Tab*) 25 mg PO DAILY [facility] Last Admin: 01/07/17 08:12 Dose: 25 mg Tamsulosin HCl (Flomax Cap*) 0.4 mg PO BEDTIME [facility] Last Admin: 01/06/17 20:52 Dose: 0.4 mg Objective Vital Signs: Temp Pulse Resp BP Pulse Ox 98.7 F 73 20 131/68 93 01/07/17 07:33 01/07/17 07:33 01/07/17 07:33 01/07/17 07:33 01/07/17 07:33 Oxygen Devices in Use Now: None Appearance: Morbid obese, tachypnic, appears chronically ill. Eyes: No Scleral Icterus, PERRLA Ears/Nose/Mouth/Throat: Clear Oropharnyx, Mucous Membranes Moist Neck: - - thick, obese, no thryromegally. Respiratory: Symmetrical Chest Expansion and Respiratory Effort - heavy rhonci, rales in the bases Cardiovascular: - - rrr, no signifcant murmur, 1+ edema Abdominal: No Hepatosplenomegaly - obese Extremities: No Clubbing, Cyanosis - mild edema Neurological: Alert and Oriented x 3 Lines/Tubes/Other Access: Clean, Dry and Intact Peripheral IV Laboratory Results: 01/06/17 05:26 01/06/17 05:25 INR (Anticoag Therapy) 1.11 (0.89-1.11) 01/07/17 04:34 Total Bilirubin 0.70 mg/dL (0.2-1.0) 01/04/17 09:40 AST 9 U/L (13-39) L 01/04/17 09:40 ALT 12 U/L (7-52) 01/04/17 09:40 Alkaline Phosphatase 67 U/L (34-104) 01/04/17 09:40 B-Natriuretic Peptide 199 pg/mL (-100) H 01/04/17 09:40 Total Protein 6.3 g/dL (6.4-8.9) L 01/04/17 09:40 Albumin 3.7 g/dL (3.2-5.2) 01/04/17 09:40 Globulin 2.6 g/dL (2-4) 01/04/17 09:40 Albumin/Globulin Ratio 1.4 (1-3) 01/04/17 09:40 01/04/17 09:40 Troponin I 0.00 Diagnostic Imaging: DEMI: moderate + MR, mild to mod TR, moderately reduced LVEF, no thrombus in the appendage Assessment/Plan 66 yo former smoker with atrial fibrillation uncertain duration, non ischemic CM 30-35% now s/p DEMI/CV and and change in medications with excellent symptom improvement and diuresis, has been alternating with occasional stable escape at 60 bpm on AM EKG from the LPF. Recent facial swelling with xarelto. - Decrease metoprolol further from tartrate 50 mg PO BID back to prior toprol 50 mg PO daily - Continue amiodarone 200 mg PO BID, continue telemetry monitoring - Continue lisinopril 20 mg PO daily - Continue lasix 40 mg PO daily - Continue aldactone 25 mg PO daily - Check BMP and Mg this AM (Ordered) and replace as needed) - Continue lovenox bridge to amiodarone - Evaluate for MARIA GUADALUPE as outpatient. - Will need follow up with Dr. Sandoval next week for further evaluation and management. Thank you for allowing me to participate in the cardiovascular care of this patient, please do not hesitate to contact me with questions or concerns.
[2017-01-07] MEDS ORDERED: Metoprolol Tartrate TAB* 50 mg PO SCH (09:00)
[2017-01-07 09:30] LABS: BUN/Creatinine Ratio 19.7 (8-20); Calcium 9.2 mg/dL (8.6-10.3); EGFR African American 169.1 (>60); EGFR Non-African American 131.5 (>60); Potassium 3.9 mmol/L (3.5-5.0)
[2017-01-07] MEDS: Atorvastatin* 20 MG TAB PO SCH (16:47)
--- NOTE | 2017-01-07 16:58 | PN ---
Subjective Date of Service: 01/07/17 Interval History: Patient seen and examined at bedside. Pt states that he is feeling well today. Denies fever, chills, shortness of breath, chest discomfort, palpitations, N/V/ D. Pt states that he has been up and walking around in the halls. Pt feels that his LE edema is improving. Tele: Sinus rhythm, rate 50-70's. Pt noted to have occasional PVCs and a short burst of SVT. Family History: Unchanged from Admission Social History: Unchanged from Admission Past Medical History: Unchanged from Admission Objective Active Medications: Amiodarone HCl (Cordarone Tab*) 200 mg PO BID [facility] Atorvastatin Calcium (Lipitor*) 20 mg PO 1700 [facility] Enoxaparin Sodium (Lovenox(*)) 130 mg SUBCUT Q12H [facility] Finasteride (Proscar Tab*) 5 mg PO DAILY [facility] Furosemide (Lasix Tab*) 40 mg PO DAILY [facility] Lisinopril (Prinivil Tab*) 20 mg PO DAILY [facility] Metoprolol Succinate (Toprol Xl Tab*) 50 mg PO DAILY [facility] Omeprazole (Prilosec Cap*) 20 mg PO 0730 [facility] Pharmacy Profile Note (Coumadin Per Pharmacy*) 1 note FOLLOW UP .PER PHARMACY PROTOC [facility] Reason: Protocol Spironolactone (Aldactone Tab*) 25 mg PO DAILY [facility] Tamsulosin HCl (Flomax Cap*) 0.4 mg PO BEDTIME [facility] Warfarin Sodium (Coumadin Tab(*)) 5 mg PO 1700 [facility] Stop: 01/07/17 17:01 Vital Signs 01/06/17 01/06/17 01/07/17 19:35 19:41 00:35 Temperature 97.5 F 98.1 F Pulse Rate 68 76 Respiratory 18 22 20 Rate Blood Pressure 104/52 118/47 (mmHg) O2 Sat by Pulse 93 88 Oximetry 01/07/17 01/07/17 01/07/17 00:46 04:37 07:33 Temperature 98.2 F 98.7 F Pulse Rate 70 73 Respiratory 20 20 Rate Blood Pressure 135/69 131/68 (mmHg) O2 Sat by Pulse 92 97 93 Oximetry 01/07/17 01/07/17 01/07/17 07:35 08:00 11:51 Temperature 98.4 F Pulse Rate 60 Respiratory 20 15 15 Rate Blood Pressure 102/51 (mmHg) O2 Sat by Pulse 97 Oximetry 01/07/17 15:42 Temperature 98.2 F Pulse Rate 66 Respiratory 14 Rate Blood Pressure 127/66 (mmHg) O2 Sat by Pulse 97 Oximetry Oxygen Devices in Use Now: None Appearance: NAD, laying in bed Eyes: No Scleral Icterus, PERRLA Ears/Nose/Mouth/Throat: Mucous Membranes Moist Respiratory: Symmetrical Chest Expansion and Respiratory Effort, - - Lung sounds with scattered rhonchi and crackles in the bases. Cardiovascular: NL Sounds; No Murmurs; No JVD, RRR Abdominal: NL Sounds; No Tenderness; No Distention Extremities: - - 1-2+ bilateral LE edema Skin: No Rash or Ulcers Neurological: Alert and Oriented x 3, NL Muscle Strength and Tone Lines/Tubes/Other Access: Clean, Dry and Intact Peripheral IV - site benign Nutrition: Taking PO's Result Diagrams: 01/06/17 05:26 01/07/17 09:05 Additional Lab and Data: Assess/Plan/Problems-Billing Assessment: Mr. Resendiz is a 66 yo male with PMH significant for recent diagnosis of atrial fibrillation with systolic CHF who presented to the emergency room with worsening shortness of breath and inability to lie flat and pulmonary edema. - Patient Problems (1) Afib Code(s): I48.91 - UNSPECIFIED ATRIAL FIBRILLATION SNOMED Code(s): 58462945 Comment: - Rate controlled, now in sinus rhythm after cardioversion - Continue Metoprolol, Lovenox bridge to Warfarin, Amiodarone (2) CHF (congestive heart failure) Code(s): I50.9 - HEART FAILURE, UNSPECIFIED SNOMED Code(s): 47072000 Comment: - Acute Systolic - S/P cardiac cath - non-ischemic cardiomyopathy, EF 30% - Continue Lasix and spironolactone (3) BPH (benign prostatic hyperplasia) Code(s): N40.0 - BENIGN PROSTATIC HYPERPLASIA WITHOUT LOWER URINRY TRACT SYMP SNOMED Code(s): 201829007 Comment: - Continue finasteride and flomax (4) HTN (hypertension) Code(s): I10 - ESSENTIAL (PRIMARY) HYPERTENSION SNOMED Code(s): 49681019 Comment: - Normortensive - Continue metoprolol and lisinopril - Discontinue amlodipine (5) HLD (hyperlipidemia) Code(s): E78.5 - HYPERLIPIDEMIA, UNSPECIFIED SNOMED Code(s): 54352458 Comment: - Continue atorvastatin (6) GERD (gastroesophageal reflux disease) Code(s): K21.9 - GASTRO-ESOPHAGEAL REFLUX DISEASE WITHOUT ESOPHAGITIS SNOMED Code(s): 822807265 Comment: - Continue omeprazole (7) DVT prophylaxis Code(s): SPI0797 - SNOMED Code(s): 542005401 Comment: - Lovenox bridge to Warfarin (8) Full code status Code(s): Z78.9 - OTHER SPECIFIED HEALTH STATUS SNOMED Code(s): 239782371 Status and Disposition: Inpatient. Discharge to home when medically stable, possibly in the morning. Will need outpatient sleep study.
[2017-01-07] MEDS ORDERED: Warfarin TAB(*) 5 MG PO ONE (17:00)
[2017-01-07] MEDS ORDERED: Polyethylene Glycol 3350* 17 GM PACKET PO PRN (17:54)
[2017-01-07] MEDS ORDERED: Magnesium Hydroxide LIQ* 30 ML UDC PO PRN (17:54)
[2017-01-07] MEDS: Tamsulosin CAP* 0.4 MG PO SCH (20:08)
[2017-01-08] MEDS: Enoxaparin(*) 150 MG/ML 1 ML SYRINGE SUBCUT SCH (05:36)
[2017-01-08 06:29] LABS: Hematocrit 42 % (42-52); Hemoglobin 13.9 g/dl (14.0-18.0); Mean Platelet Volume 8 um3 (7.4-10.4)
[2017-01-08 06:53] LABS: BUN/Creatinine Ratio 24.6 (8-20); EGFR African American 182.8 (>60); EGFR Non-African American 142.2 (>60); Potassium 3.9 mmol/L (3.5-5.0)
[2017-01-08] MEDS: Omeprazole CAP* 20 MG PO SCH (08:20)
[2017-01-08] MEDS: Lisinopril TAB* 10 MG PO SCH (08:20)
[2017-01-08] MEDS: Finasteride TAB* 5 MG PO SCH (08:20)
[2017-01-08] MEDS: Metoprolol Succinate XL TAB* 50 MG PO SCH (08:21)
[2017-01-08] MEDS: Furosemide TAB* 40 MG PO SCH (08:21)
[2017-01-08] MEDS: Spironolactone TAB* 25 MG PO SCH (08:21)
[2017-01-08] MEDS: Amiodarone TAB* 200 MG PO SCH (08:21)
--- NOTE | 2017-01-08 12:23 | PN ---
Subjective Date of Service: 01/08/17 Interval History: Patient seen and examined at bedside. Pt states that he feels well and is anxious to get home. Denies fever, chills, shortness of breath, chest discomfort , N/V/D. Pt states that his LE edema is almost back to his baseline. Pt states that he has been up and ambulating in the halls without difficulties. Tele: Sinus rhythm, rate 70-80's. Few PVCs noted, less frequent. Family History: Unchanged from Admission Social History: Unchanged from Admission Past Medical History: Unchanged from Admission Objective Active Medications: Amiodarone HCl (Cordarone Tab*) 200 mg PO BID [facility] Atorvastatin Calcium (Lipitor*) 20 mg PO 1700 [facility] Enoxaparin Sodium (Lovenox(*)) 130 mg SUBCUT Q12H [facility] Finasteride (Proscar Tab*) 5 mg PO DAILY [facility] Furosemide (Lasix Tab*) 40 mg PO DAILY [facility] Lisinopril (Prinivil Tab*) 20 mg PO DAILY [facility] Magnesium Hydroxide (Milk Of [employer] Liq*) 30 ml PO Q6H PRN Reason: CONSTIPATION Metoprolol Succinate (Toprol Xl Tab*) 50 mg PO DAILY [facility] Omeprazole (Prilosec Cap*) 20 mg PO 0730 [facility] Pharmacy Profile Note (Coumadin Per Pharmacy*) 1 note FOLLOW UP .PER PHARMACY PROTOC [facility] Reason: Protocol Polyethylene Glycol/Electrolytes (Miralax*) 17 gm PO DAILY PRN Reason: CONSTIPATION Spironolactone (Aldactone Tab*) 25 mg PO DAILY [facility] Tamsulosin HCl (Flomax Cap*) 0.4 mg PO BEDTIME [facility] Warfarin Sodium (Coumadin Tab(*)) 6 mg PO 1700 [facility] Stop: 01/08/17 17:01 Vital Signs 01/07/17 01/07/17 01/07/17 15:42 19:16 20:00 Temperature 98.2 F 98.6 F Pulse Rate 66 68 Respiratory 14 18 18 Rate Blood Pressure 127/66 116/58 (mmHg) O2 Sat by Pulse 97 94 Oximetry 01/08/17 01/08/17 01/08/17 00:00 04:49 07:20 Temperature 97.9 F 98.4 F 98.4 F Pulse Rate 70 81 67 Respiratory 16 16 18 Rate Blood Pressure 116/55 142/61 136/73 (mmHg) O2 Sat by Pulse 92 93 97 Oximetry Oxygen Devices in Use Now: None Appearance: NAD, standing in the room Eyes: No Scleral Icterus, PERRLA Ears/Nose/Mouth/Throat: Mucous Membranes Moist Respiratory: Symmetrical Chest Expansion and Respiratory Effort, Clear to Auscultation Cardiovascular: NL Sounds; No Murmurs; No JVD, RRR Abdominal: NL Sounds; No Tenderness; No Distention Extremities: - - 1+ bilateral LE edema Skin: No Rash or Ulcers Neurological: Alert and Oriented x 3, NL Muscle Strength and Tone Lines/Tubes/Other Access: Clean, Dry and Intact Peripheral IV - site benign Nutrition: Taking PO's Result Diagrams: 01/08/17 06:00 01/08/17 06:00 Additional Lab and Data: Assess/Plan/Problems-Billing Assessment: Mr. Resendiz is a 66 yo male with PMH significant for recent diagnosis of atrial fibrillation with systolic CHF who presented to the emergency room with worsening shortness of breath and inability to lie flat and pulmonary edema. - Patient Problems (1) Afib Code(s): I48.91 - UNSPECIFIED ATRIAL FIBRILLATION SNOMED Code(s): 37718542 Comment: - Rate controlled, now in sinus rhythm after cardioversion - Continue Metoprolol, Lovenox bridge to Warfarin, and Amiodarone (2) CHF (congestive heart failure) Code(s): I50.9 - HEART FAILURE, UNSPECIFIED SNOMED Code(s): 75721134 Comment: - Acute Systolic - S/P cardiac cath - non-ischemic cardiomyopathy, EF 30% - Continue Lasix and spironolactone (3) BPH (benign prostatic hyperplasia) Code(s): N40.0 - BENIGN PROSTATIC HYPERPLASIA WITHOUT LOWER URINRY TRACT SYMP SNOMED Code(s): 943331985 Comment: - Continue finasteride and flomax (4) HTN (hypertension) Code(s): I10 - ESSENTIAL (PRIMARY) HYPERTENSION SNOMED Code(s): 64637814 Comment: - Normortensive - Continue metoprolol and lisinopril - Discontinue amlodipine (5) HLD (hyperlipidemia) Code(s): E78.5 - HYPERLIPIDEMIA, UNSPECIFIED SNOMED Code(s): 16366081 Comment: - Continue atorvastatin (6) GERD (gastroesophageal reflux disease) Code(s): K21.9 - GASTRO-ESOPHAGEAL REFLUX DISEASE WITHOUT ESOPHAGITIS SNOMED Code(s): 906823156 Comment: - Continue omeprazole (7) DVT prophylaxis Code(s): LYN4755 - SNOMED Code(s): 399156661 Comment: - Lovenox bridge to Warfarin (8) Full code status Code(s): Z78.9 - OTHER SPECIFIED HEALTH STATUS SNOMED Code(s): 416181183 Status and Disposition: Inpatient. Stable for discharge to home. Will need outpatient sleep study.
[2017-01-08 12:28] VITALS: BP 116/60
[2017-01-08] MEDS ORDERED: Warfarin TAB(*) 6 MG PO ONE (17:00)
--- NOTE | 2017-01-09 14:14 | DS ---
DISCHARGE SUMMARY: DATE OF ADMISSION: 01/04/17 DATE OF DISCHARGE: 01/08/17 ATTENDING PHYSICIAN: Dr. Jerry Murillo* (dictated by Celine Treviño NP). PRIMARY CARE PROVIDER: Dr. Haleigh Parikh. PRIMARY DIAGNOSES: 1. Atrial fibrillation. 2. Systolic congestive heart failure. SECONDARY DIAGNOSES: 1. Benign prostatic hypertrophy. 2. Hypertension. 3. Hyperlipidemia. 4. Gastroesophageal reflux disease. CONSULTATIONS WHILE IN THE HOSPITAL: Dr. Larry Payton, Dr. Britt Garcia and Dr. Roberto Parker with Cardiology. PROCEDURES WHILE IN THE HOSPITAL: 1. Status post cardiac catheterization on 01/05/[address] Larry Payton. 2. Status post cardioversion on 01/06/[address] Britt Garcia. STUDIES WHILE IN THE HOSPITAL: 1. Chest x-ray on 01/04/17. Radiologist's impression: Low lung volumes. No active cardiopulmonary disease. 2. Transesophageal echocardiogram on 01/06/17. Aircraft Armorer's conclusion: There is [id number] decreased left ventricular systolic function. The estimated ejection fraction is 30% to 35%. The right ventricular global systolic function is moderately reduced. There is no thrombus visualized in the left atrial appendage. Interatrial septum appears intact without evidence of shunting. The aortic valve is trileaflet with normal function. There is moderate mitral regurgitation, posterior wall jet. There is [id number] tricuspid regurgitation. Compared with transthoracic echocardiogram of 01/01/17 , LVEF is stable, mitral insufficiency has increased from mild, right ventricular hypokinesis newly appreciated. DISCHARGE MEDICATIONS: New Medications: 1. Amiodarone 200 mg oral twice daily. 2. Lovenox 130 mg subcutaneous every 12 hours. 3. Lisinopril 20 mg oral daily. 4. Spironolactone 25 mg oral daily. 5. Warfarin 6 mg oral daily. Continued Home Medications: 1. Atorvastatin 20 mg oral daily. 2. Tamsulosin 0.4 mg oral daily at bedtime. 3. Metoprolol succinate XL 50 mg oral daily at bedtime. 4. Furosemide 40 mg oral daily. 5. Finasteride 5 mg oral daily. 6. Multivitamin one tablet oral daily. 7. Omeprazole 20 mg oral daily. Discontinued Home Medications: 1. Amlodipine/benazepril. 2. XARELTO. HISTORY OF PRESENT ILLNESS/HOSPITAL COURSE: Mr. Resendiz is a 66-year-old male with past medical history significant for hypertension and hyperlipidemia, who presented to the hospital with concern for bilateral lower extremity swelling and shortness of breath. The patient described being more exhausted than his usual, but had no specific symptoms. Patient had had shortness of breath for approximately 2 weeks and had noticed more significant bilateral lower extremity swelling. He was following with his tarp repairer, Dr. Sandoval, who noted the patient was in atrial fibrillation and this was a new diagnosis for him. The patient was started on metoprolol and XARELTO with plans for followup echocardiogram and stress test. Patient underwent an echocardiogram on 01/01 showing an ejection fraction of 30% and global hypokinesis. After that , the patient developed significant swelling of his face. It was felt to be secondary to allergic reaction to XARELTO and the patient's XARELTO was stopped and he was placed on baby aspirin until he was seen in followup by Dr. Sandoval. The patient presented to the hospital for an outpatient cardiac stress test, when the staff noticed the patient had crackles in his lungs and 3+ pitting edema in his legs. Dr. Sandoval saw the patient and advised him to go to the emergency room for evaluation. While in the emergency room, Mr. Resendiz had a normal creatinine, a mildly elevated BNP at 199, and troponin of 0.00. Patient had an EKG showing atrial fibrillation with a rate of 115. He had a chest x-ray with no acute cardiopulmonary findings. Although upon further evaluation of the chest x-ray, the patient appeared to have significant pulmonary edema. Patient was started on a Cardizem drip with good results. He was also given a one-time dose of Bumex IV with good urine output and his breathing improved. The hospitalists were asked to evaluate the patient for admission. While in the hospital, the patient was treated with IV Lasix for his systolic congestive heart failure. For his atrial fibrillation, he initially underwent a cardiac catheterization by Dr. Larry Payton on 01/05/17, at which time the patient was found to have a dilated left ventricle, global hypokinesis, ejection fraction of 30% to 35%. The systolic function of the left ventricle was moderately reduced. Patient had normal coronaries. The following day on 05/ 10/17, the patient under-went a transesophageal echocardiogram by Dr. Britt Garcia, and an electrical cardioversion and was successfully converted from atrial fibrillation with rapid ventricular rate to a sinus rhythm alternating with a junctional rhythm. It was felt that the patient would need antiarrhythmics to maintain a sinus rhythm and he was started on amiodarone. Patient was monitored on telemetry overnight, was noted to be in sinus rhythm and continued to have junctional rhythm with escape beats. The patient had his medications further adjusted and was again monitored on telemetry overnight. Patient maintained sinus rhythm. His blood pressures have been controlled. During this time, the patient has diuresed off approximately 10 L and lost approximately 15 pounds with a discharge day weight of 269 pounds. Patient has been able to ambulate in the hallways with no symptoms. His bilateral lower extremity edema has significantly improved during his stay. Mr. Resendiz is stable for discharge to home today. Vital signs are as follows: Temperature 98.2, heart rate 66, respiratory rate 18, O2 sat 96% on room air, blood pressure 116/60. DISCHARGE PLAN: Mr. Resendiz will be discharged to home today. ACTIVITY: As tolerated. DIET: He should be on a heart healthy, low sodium diet. As far as the patient's systolic heart failure, he should continue on Lasix 40 mg daily in addition to Aldactone 25 mg oral daily. He has been instructed to weigh himself daily and to report to Dr. Sandoval if he gains more than 3 pounds in 24 hours. As far as the patient's atrial fibrillation, he again was in sinus rhythm at discharge. He will be continued on amiodarone 200 mg twice daily. He has been started on warfarin. He will be on 6 mg daily on Wednesday, Wednesday, Wednesday. He has been instructed to recheck an INR on Wednesday and await results from Dr. Sandoval to further dose his warfarin. Due to the patient having a subtherapeutic INR at 1.13 on the day of discharge, he has been continued on Lovenox injections 130 mg subcutaneous q. 12 hours. The patient has also been started on lisinopril 20 mg oral daily. The patient has a followup appointment with Dr. Sandoval on 01/15/17 at 1:30 p.m. The patient should have a followup echocardiogram in a few weeks to evaluate his ejection fraction. Patient has been instructed to stop taking amlodipine. The patient has also been continued on his home previous metoprolol at 50 mg oral daily. Patient should be set up for outpatient sleep study as MARIA GUADALUPE may be contributing to the patient's atrial fibrillation. The patient should be seen in followup by his primary care doctor, Dr. Parikh. He has a followup appointment on 01/20/17 at 9:15 a.m. Again the patient's XARELTO has been stopped due to a possible allergic reaction. The patient has been instructed to return to the emergency room for shortness of breath or chest pain. This is a summarized report of a complex medical history and hospital stay. For further details, please see the entire medical record. TIME SPENT: Time for this discharge was 50 minutes and 25 minutes was spent face to face with the patient discussing discharge plans and instructions. CONDITION ON DISCHARGE: Stable. CELINE TREVIÑO NP CC: Dr. Bacilio Sandoval; Dr. Parikh* [id number]/[facility] #: [id number] EDIN
== END 2017-01-08 15:30 | disposition home or self-care (01) | DRG 286 ==
LOC: ED 09:00 → MEDTELE 11:26 → OBSVTOIN 01-05 18:05
PROVIDERS: ADMIT Internal Medicine; ATTEND Internal Medicine
PROC: 4A023N7 Measurement of Cardiac Sampling and Pressure, Left Heart, Percutaneous Approach (ICD-10-PCS; 2017-01-05)
PROC: B2151ZZ Fluoroscopy of Left Heart using Low Osmolar Contrast (ICD-10-PCS; 2017-01-05)
PROC: B2111ZZ Fluoroscopy of Multiple Coronary Arteries using Low Osmolar Contrast (ICD-10-PCS; principal; 2017-01-05 08:00)
PROC: 5A2204Z Restoration of Cardiac Rhythm, Single (ICD-10-PCS; 2017-01-06)
PROC: B24BZZ4 Ultrasonography of Heart with Aorta, Transesophageal (ICD-10-PCS; 2017-01-06)
DX: I48.91 Unspecified atrial fibrillation (principal); I50.21 Acute systolic (congestive) heart failure; I42.9 Cardiomyopathy, unspecified; I27.2 Other secondary pulmonary hypertension; E66.01 Morbid (severe) obesity due to excess calories; I07.1 Rheumatic tricuspid insufficiency; G47.33 Obstructive sleep apnea (adult) (pediatric); I11.0 Hypertensive heart disease with heart failure; I25.10 Atherosclerotic heart disease of native coronary artery without angina pectoris; E78.5 Hyperlipidemia, unspecified; N40.0 Benign prostatic hyperplasia without lower urinary tract symptoms; K21.9 Gastro-esophageal reflux disease without esophagitis; I47.1 Supraventricular tachycardia; I49.3 Ventricular premature depolarization; Z80.1 Family history of malignant neoplasm of trachea, bronchus and lung; Z82.49 Family history of ischemic heart disease and other diseases of the circulatory system; Z83.3 Family history of diabetes mellitus; Z87.891 Personal history of nicotine dependence; Z79.01 Long term (current) use of anticoagulants; Z68.39 Body mass index [BMI] 39.0-39.9, adult
CPT/HCPCS: 30300; 36415; 71010; 80048; 80053; 81003; 81015; 83605; 83735; 83880; 84484; 85014; 85018; 85025; 85049; 85610; 86140; 87077; 87086; 87186; 92960; 93005; 93312; 93325; 93458; A9270-GY; C1887; J1644; J1650; J1940; J2001; J2250; J2310; J3010

== ENCOUNTER 2017-08-28 09:13 | Emergency (ER) | payer MEDICARE ==
[2017-08-28 09:49] VITALS: BP 111/55
--- NOTE | 2017-08-28 11:08 | RAD ---
INDICATION: Cough and congestion for 2 to 3 weeks COMPARISON: Most recent comparison chest x-rays dated January 04, 2017 TECHNIQUE: PA and lateral views of the chest were obtained. FINDINGS: The heart and mediastinum are normal in size and contour. There is a focus of density at the lower right lung. Elsewhere lungs are grossly clear. There is no evidence of large pleural effusion. Visualized bones are normal for the patient's age. There is no radiographic evidence of free air beneath the diaphragm IMPRESSION: DENSITY AT THE LOWER RIGHT LUNG COULD REPRESENT PNEUMONIA OR INFILTRATE IN THE CORRECT CLINICAL SETTING. FOLLOW-UP CHEST X-RAY AFTER AN APPROPRIATE COURSE OF THERAPY IS ADVISED TO ASCERTAIN RESOLUTION.
--- NOTE | 2017-08-28 11:20 | UC ---
Respiratory Complaint HPI - HPI Summary HPI Summary: cough and congestion for a few days. Post nasal drip is worse with laying flat but no obvious Orthopnea or PND. He has afib and cfh. NO fever. Cough has yellow sputum. NO worsening sob. No new swelling. He is now sure if his weight is up. - History of Current Complaint Chief Complaint: UCRespiratory Stated Complaint: COUGH Time Seen by Provider: 08/28/17 10:24 Hx Obtained From: Patient Onset/Duration: Gradual Onset, Lasting Days, Still Present Timing: Constant Severity Initially: Moderate Severity Currently: Moderate Character: Cough: Productive Aggravating Factors: Deep Breaths, Recumbent Position Alleviating Factors: Nothing Associated Signs And Symptoms: Positive: URI, Nasal Congestion. Negative: Fever , Chills, Calf Pain, Calf Swelling - Allergies/Home Medications Allergies/Adverse Reactions: Allergies Allergy/AdvReac Type Severity Reaction Status Date / Time Rivaroxaban [From Xarelto] Allergy Severe Swelling Verified 08/28/17 09:37 PMH/Surg Hx/FS Hx/Imm Hx Previously Healthy: No - Surgical History Surgical History: Yes Surgery Procedure, Year, and Place: CARDIAC CATH NOVEMBER 2016 - Family History Known Family History: Positive: Cardiac Disease, Diabetes - Social History Alcohol Use: Rare Substance Use Type: None Smoking Status (MU): Former Smoker - Immunization History Most Recent Influenza Vaccination: Fall 2015 Most Recent Pneumonia Vaccination: 2013 Review of Systems Respiratory: Cough All Other Systems Reviewed And Are Negative: Yes Physical Exam Triage Information Reviewed: Yes Appearance: Well-Appearing, No Pain Distress, Obese Vital Signs: Initial Vital Signs Temp 98.6 F 08/28/17 09:39 Pulse 70 08/28/17 09:39 Resp 20 08/28/17 09:39 BP 111/55 08/28/17 09:39 Pulse Ox 93 08/28/17 09:39 Vital Signs Reviewed: Yes Eye Exam: Normal Eyes: Positive: Conjunctiva Clear. Negative: Conjunctiva Inflamed ENT: Positive: Normal ENT inspection, Pharynx normal, Pharyngeal erythema, Nasal congestion, TMs normal, Uvula midline. Negative: TM bulging, TM dull, TM red, Tonsillar swelling, Tonsillar exudate, Trismus, Sinus tenderness Neck: Positive: Supple, Nontender, No Lymphadenopathy Respiratory: Positive: No respiratory distress, No accessory muscle use, Rhonchi - kendal lower lobe rhonchi.. Negative: Respiratory distress, Crackles, Wheezing Cardiovascular Exam: Other - distant heart sounds. Cardiovascular: Positive: Brisk Capillary Refill Abdomen Description: Positive: No Organomegaly, Soft. Negative: Distended, Guarding Musculoskeletal: Positive: ROM Intact, No Edema Neurological: Positive: Alert, Muscle Tone Normal. Negative: Fatigued Psychological: Positive: Age Appropriate Behavior Skin: Negative: rashes UC Diagnostic Evaluation - Laboratory O2 Sat by Pulse Oximetry: 93 Respiratory Course/Dx - Course Course Of Treatment: There is no clinical or radiographic evidence that chf has worsened. We will treat with z pack and supportive care. he agrees to have INR checked on Wednesday. he will return for any worsening. - Differential Dx/Diagnosis Provider Diagnoses: bronchitis. possible pneumonia. Discharge - Discharge Plan Condition: Good Disposition: HOME Prescriptions: Azithromyxin SILAS (NF) [Z-Silas (Zithromax) 250 mg tabs #6] 2 tab PO .TODAY, THEN 1 DAILY #6 tab Patient Education Materials: Upper Respiratory Infection (ED) Referrals: LALO Goins [Primary Care Provider] - 3 Days Additional Instructions: Please have your INR checked for you coumadin in 3-4 days. REturn here for any worsening.
== END 2017-08-28 11:32 | disposition home or self-care (01) ==
LOC: UCCORT 09:13
DX: J40 Bronchitis, not specified as acute or chronic (principal); E66.9 Obesity, unspecified
CPT/HCPCS: 71020; 99212; G0463